=== PATIENT | female | born 1970 | race African-American/Black ===

== ENCOUNTER 2019-06-24 23:50 | Emergency (ER) | payer OTHER | END 2019-06-25 02:22 | disposition home or self-care (01) | LOC: JER 23:50 | DX: H81.399 Other peripheral vertigo, unspecified ear (principal); H61.20 Impacted cerumen, unspecified ear ==

== ENCOUNTER 2020-11-20 23:50 | Emergency (ER) | payer OTHER ==
[2020-11-21 00:21] VITALS: BMI 32.3
[2020-11-21] MEDS ORDERED: LACTATED RINGERS SOLUTION 1000 ML INFUS.BAG IV ONE (01:13)
[2020-11-21 02:03] LABS: BASO % 0.2 % (0-2.0); EOS % 0.7 % (0-4.5); HEMOGLOBIN 12.2 GM/dL (10.7-15.3); LYMPH % 12.1 % (8-40); MCH 28.1 pg (25.7-33.7); MCHC 33.7 g/dl (32.0-36.0); MEAN CELL VOLUME 83.3 fl (80-96); MONO % 5.8 % (3.8-10.2); NEUT % 81.2 % (42.8-82.8); PLATELET COUNT 412 K/MM3 (134-434); RBC 4.33 M/mm3 (3.60-5.2); RDW 14.2 % (11.6-15.6)
[2020-11-21 02:32] LABS: CALCIUM 10.2 mg/dL (8.5-10.1); SODIUM 139 mmol/L (136-145)
[2020-11-21 02:33] LABS: ALBUMIN 4.3 g/dl (3.4-5.0); BLOOD UREA NITROGEN 11.6 mg/dL (7-18); CO2 30 mmol/L (21-32); GLUCOSE,RANDOM 96 mg/dL (74-106); MAGNESIUM 1.9 mg/dL (1.8-2.4)
[2020-11-21 02:36] LABS: SGOT/AST 15 U/L (15-37); SGPT/ALT 16 U/L (13-61)
[2020-11-21 02:37] LABS: BILIRUBIN,TOTAL 0.5 mg/dL (0.2-1); TOT PROT 8.1 g/dl (6.4-8.2)
[2020-11-21 02:38] LABS: ALK PHOS 81 U/L (45-117)
[2020-11-21 02:43] LABS: ANION GAP 5 MMOL/L (8-16); CHLORIDE 104 mmol/L (98-107)
[2020-11-21] MEDS ORDERED: ACETAMINOPHEN 1000 MG/100 ML BAG IVPB ONE (03:06)
[2020-11-21] MEDS ORDERED: ACETAMINOPHEN INJECTION 100 ML IVPB ONE (03:13)
[2020-11-21] MEDS ORDERED: KETOROLAC TROMETHAMINE 15 MG/ML VIAL IVPUSH ONE (05:17)
[2020-11-21] MEDS ORDERED: KETOROLAC TROMETHAMINE 30 MG/1 ML VIAL ONE (05:32)
[2020-11-21 06:30] VITALS: BP 147/77; PULSE 72; TEMP 98.1
== END 2020-11-21 06:32 | disposition home or self-care (01) ==
LOC: JER 23:50
PROC: 3E0333Z Introduction of Anti-inflammatory into Peripheral Vein, Percutaneous Approach (ICD-10-PCS; principal; 2020-11-20)
PROC: 3E0333Z Introduction of Anti-inflammatory into Peripheral Vein, Percutaneous Approach (ICD-10-PCS; 2020-11-20)
DX: R00.2 Palpitations (principal)
CPT/HCPCS: 36415; 71045-TC-FY; 80053; 83735; 84443; 84484; 84703; 85025; 85379; 93005; 93010; 96374; 96375; 99285-25; J0131

== ENCOUNTER 2021-11-03 23:00 | Emergency (ER) | payer OTHER ==
[2021-11-03 23:15] VITALS: BMI 31.4
[2021-11-04] MEDS ORDERED: ACETAMINOPHEN 325 MG TABLET (FP) PO ONE (00:52)
[2021-11-04] MEDS: KETOROLAC TROMETHAMINE 15 MG/ML VIAL IM ONE ×2 (01:12→01:38)
[2021-11-04] MEDS ORDERED: KETOROLAC TROMETHAMINE 30 MG/1 ML VIAL ONE (01:23)
[2021-11-04 02:12] VITALS: BP 119/83; PULSE 89; TEMP 97.8
== END 2021-11-04 03:30 | disposition home or self-care (01) ==
LOC: JER 23:00
PROC: 3E0233Z Introduction of Anti-inflammatory into Muscle, Percutaneous Approach (ICD-10-PCS; principal; 2021-11-03)
DX: M79.601 Pain in right arm (principal)
CPT/HCPCS: 70450-TC; 72125-TC; 96372; 99285-25